=== PATIENT | male | born 1990 | race Caucasian/White ===

== ENCOUNTER 2017-02-24 10:11 | Emergency (ER) | payer OTHER ==
[2017-02-24] MEDS ORDERED: Sodium Chloride 0.9% 1,000 ML IV ONE (10:29)
[2017-02-24] MEDS ORDERED: Pantoprazole 40 MG Vial IVPUSH ONE (10:30)
--- NOTE | 2017-02-24 10:36 | EDM.PDOC ---
ED HPI GENERAL MEDICAL PROBLEM - General Chief Complaint: Abdominal Pain Stated Complaint: ABDOMINAL PAIN Time Seen by Provider: 02/24/17 10:20 - History of Present Illness INITIAL COMMENTS - FREE TEXT/NARRATIVE: HISTORY AND PHYSICAL: History of present illness: Patient 26-year-old white male presents concern of abdominal pain he states he' s had nausea with vomiting with several episodes of small blood in his emesis he denies melena hematochezia denies trauma denies fever chills denies urinary symptoms or other complaints Review of systems: As per history of present illness and below otherwise all systems reviewed and negative. Past medical history: As per history of present illness and as reviewed below otherwise noncontributory. Surgical history: As per history of present illness and as reviewed below otherwise noncontributory. Social history: No reported history of drug or alcohol abuse. Family history: As per history of present illness and as reviewed below otherwise noncontributory. Physical exam: HEENT: Atraumatic, normocephalic, pupils reactive, negative for conjunctival pallor or scleral icterus, mucous membranes moist, throat clear, neck supple, nontender, trachea midline. Lungs: Clear to auscultation, breath sounds equal bilaterally, chest nontender. Heart: S1S2, regular, negative for clicks, rubs, or JVD. Abdomen: Soft, nondistended, no localized tenderness. Negative for masses or hepatosplenomegaly. Negative for costovertebral tenderness. Pelvis: Stable nontender. Genitourinary: Deferred. Rectal: Deferred. Extremities: Atraumatic, negative for cords or calf pain. Neurovascular unremarkable. Neuro: Awake, alert, oriented. Cranial nerves II through XII unremarkable. Cerebellum unremarkable. Motor and sensory unremarkable throughout. Exam nonfocal. Diagnostics: CBC CMP amylase lipase UA chest x-ray EKG CT abdomen and pelvis Therapeutics: Normal saline 1 L bolus Protonix 80 mg IV Impression: #1 abdominal pain #2 history of hematemesis Definitive disposition and diagnosis as appropriate pending reevaluation and review of above. - Related Data Allergies Allergy/AdvReac Type Severity Reaction Status Date / Time No Known Allergies Allergy Verified 02/24/17 10:50 Home Meds: Home Meds . [No Known Home Meds] 02/24/17 [History] ED ROS GENERAL - Review of Systems Review Of Systems: ROS reveals no pertinent complaints other than HPI. ED EXAM, GENERAL - Physical Exam Exam: See Below (See dictation) Course - Vital Signs Last Recorded V/S: Last Vital Signs Temp 36.5 C 02/24/17 11:13 Pulse 105 H 02/24/17 11:13 Resp 18 02/24/17 11:13 BP 142/89 H 02/24/17 11:13 Pulse Ox 97 02/24/17 11:13 - Orders/Labs/Meds Orders: Active Orders 24 hr Category Date Time Status EKG Documentation Completion [RC] STAT Care 02/24/17 10:45 Active Abdomen Pelvis wo Cont [CT] Stat Exams 02/24/17 10:28 Taken Chest 1V Frontal [CR] Stat Exams 02/24/17 10:29 Taken Labs: Laboratory Tests 02/24/17 02/24/17 02/24/17 Range/Units 10:44 10:44 11:50 WBC 8.12 (4.0-11.0) K/uL RBC 6.04 H (4.50-5.90) M/uL Hgb 18.0 H (13.0-17.0) g/dL Hct 52.9 H (38.0-50.0) % MCV 87.6 (80.0-98.0) fL MCH 29.8 (27.0-32.0) pg MCHC 34.0 (31.0-37.0) g/dL RDW Std Deviation 43.0 (28.0-62.0) fl RDW Coeff of Fab 14 (11.0-15.0) % Plt Count 224 (150-400) K/uL MPV 10.30 (7.40-12.00) fL Neut % (Auto) 74.3 (48.0-80.0) % Lymph % (Auto) 15.9 L (16.0-40.0) % [place] % (Auto) 7.6 (0.0-15.0) % Eos % (Auto) 1.7 (0.0-7.0) % Baso % (Auto) 0.5 (0.0-1.5) % Neut # (Auto) 6.0 H (1.4-5.7) K/uL Lymph # (Auto) 1.3 (0.6-2.4) K/uL [place] # (Auto) 0.6 (0.0-0.8) K/uL Eos # (Auto) 0.1 (0.0-0.7) K/uL Baso # (Auto) 0.0 (0.0-0.1) K/uL Nucleated RBC % 0.0 /100WBC Nucleated RBCs # 0 K/uL Sodium 138 (136-146) mmol/L Potassium 4.4 (3.5-5.1) mmol/L Chloride 103 (98-110) mmol/L Carbon Dioxide 27 (21-31) mmol/L BUN 12 (6.0-23.0) mg/dL Creatinine 0.9 (0.6-1.5) mg/dL Est Cr Clr Drug Dosing 131.31 mL/min Estimated GFR (MDRD) > 60.0 ml/min Glucose 106 (60-110) mg/dL Calcium 10.1 (8.8-10.8) mg/dL Total Bilirubin 0.7 (0.1-1.5) mg/dL AST 19 (5-40) IU/L ALT 21 (8-54) IU/L Alkaline Phosphatase 74 (40-150) Total Protein 7.6 (6.0-8.0) g/dL Albumin 4.5 (3.5-5.0) g/dL Globulin 3.1 (2.0-3.5) g/dL Albumin/Globulin Ratio 1.5 (1.3-2.8) Lipase 48 (7-80) U/L Urine Color YELLOW Urine Appearance CLEAR Urine pH 8.5 H (5.0-8.0) Ur Specific [place] 1.020 (1.001-1.035) Urine Protein TRACE (NEGATIVE) mg/dL Urine Glucose (UA) NEGATIVE (NEGATIVE) mg/dL Urine Ketones NEGATIVE (NEGATIVE) mg/dL Urine Occult Blood NEGATIVE (NEGATIVE) Urine Nitrite NEGATIVE (NEGATIVE) Urine Bilirubin SMALL H (NEGATIVE) Urine Ictotest NEGATIVE Urine Urobilinogen 1.0 (<2.0) EU/dL Ur Leukocyte Esterase NEGATIVE (NEGATIVE) Urine RBC 0-2 (0-2/HPF) Urine WBC 0-2 (0-5/HPF) Ur Epithelial Cells FEW (NONE-FEW) Amorphous Sediment FEW (NEGATIVE) Urine Bacteria FEW (NEGATIVE) Meds: Medications Discontinued Medications Generic Name Dose Route Start Last Admin Trade Name Freq PRN Reason Stop Dose Admin Sodium Chloride 1,000 mls @ 999 mls/hr 02/24/17 10:29 02/24/17 10:51 Normal Saline IV 02/24/17 11:29 999 mls/hr .Bolus ONE Administration Ondansetron HCl 4 mg 02/24/17 10:45 02/24/17 10:53 Zofran IVPUSH 02/24/17 10:46 4 mg ONETIME ONE Administration Pantoprazole Sodium 80 mg 02/24/17 10:30 02/24/17 10:57 Protonix Iv IVPUSH 02/24/17 10:31 80 mg NOW ONE Administration Departure - Departure Time of Disposition: 12:39 Disposition: Home, Self-Care 01 Condition: Good Clinical Impression: Gastritis, Vomiting, Dehydration - Discharge Information Referrals: PCP,None [Primary Care Provider] - Forms: ED Department Discharge Additional Instructions: The following information is given to patients seen in the emergency department who are being discharged to home. This information is to outline your options for follow-up care. We provide all patients seen in our emergency department with a follow-up referral. The need for follow-up, as well as the timing and circumstances, are variable depending upon the specifics of your emergency department visit. If you don't have a primary care physician on staff, we will provide you with a referral. We always advise you to contact your personal physician following an emergency department visit to inform them of the circumstance of the visit and for follow-up with them and/or the need for any referrals to a consulting specialist. The emergency department will also refer you to a specialist when appropriate. This referral assures that you have the opportunity for followup care with a specialist. All of these measure are taken in an effort to provide you with optimal care, which includes your followup. Under all circumstances we always encourage you to contact your private physician who remains a resource for coordinating your care. When calling for followup care, please make the office aware that this follow-up is from your recent emergency room visit. If for any reason you are refused follow-up, please contact the [facility] emergency department at and asked to speak to the emergency department charge nurse. [facility] Specialty Care - General Surgery Professional Building [address] [place] [address], [address] [place] [address] [facility] [address] [place] [address] Protonix as prescribed Zofran as prescribed push fluids call to schedule routine appointment with primary care and Gen. surgery above return as needed as discussed - My Orders Last 24 Hours: My Active Orders 02/24/17 10:28 Abdomen Pelvis wo Cont [CT] Stat 02/24/17 10:29 Chest 1V Frontal [CR] Stat 02/24/17 10:45 EKG Documentation Completion [RC] STAT - Assessment/Plan Last 24 Hours: My Active Orders 02/24/17 10:28 Abdomen Pelvis wo Cont [CT] Stat 02/24/17 10:29 Chest 1V Frontal [CR] Stat 02/24/17 10:45 EKG Documentation Completion [RC] STAT
[2017-02-24] MEDS ORDERED: Ondansetron 4 MG/2 ML SDV IVPUSH ONE (10:45)
[2017-02-24 11:17] LABS: CHLORIDE,CL 103 mmol/L (98-110); SODIUM,NA 138 mmol/L (136-146)
--- NOTE | 2017-02-25 15:00 | CR ---
EXAM DATE: 02/24/17 PATIENT'S AGE: 26 Patient: HECTOR HAHN Facility: [place], [place] Site . Site : 1990 Study: XRay Chest [id number]/2017 11:21:42 AM Ordering Physician: Boy Ramirez Final Report: INDICATION: Pain. Technique: PA chest. Findings: Heart and mediastinum are normal in size. Pulmonary vessels are normal. Lungs are clear. No pleural fluid. No acute bony abnormality. Impression: Normal chest. Dictated by Rony Valdez MD @ Feb 24 2017 11:49AM (Electronic Signature) Report Signed by Proxy. [facility] HOSPITALRadha
--- NOTE | 2017-02-25 15:02 | CT ---
EXAM DATE: 02/24/17 PATIENT'S AGE: 26 Patient: HECTOR HAHN Facility: [place], [place] Site . Site : 1990 Study: CT Abdomen/Pelvis [id number]/26/[id number] 11:23:23 AM Ordering Physician: Boy Ramirez Final Report: INDICATION: Abdominal pain. TECHNIQUE: CT abdomen and pelvis without contrast. COMPARISON: None FINDINGS: Lower chest: Unremarkable. Liver: Unremarkable. Spleen: Unremarkable. Pancreas: No mass or ductal dilatation. Gallbladder and bile ducts: Unremarkable. Kidneys: No kidney or ureteral stones and no hydronephrosis. No renal lesions. Adrenal glands: Unremarkable. GI tract: There is minimal fat stranding adjacent to the distal gastric antrum, near the level of the pancreatic neck. Findings could represent gastritis or ulcer disease. No other bowel abnormality. The appendix is normal. Vascular structures: No abdominal aortic aneurysm. Lymph nodes: Unremarkable. Miscellaneous: No free air or ascites. Pelvic Organs: Unremarkable. Bones: No acute abnormality. No suspicious bone lesion. IMPRESSION: 1. Minimal fat stranding adjacent to the distal gastric antrum near the level of pancreatic neck. Findings may represent gastritis or ulcer disease. Correlate with upper abdominal/epigastric symptoms. The pancreas itself appears normal without definite evidence of pancreatitis. 2. The remainder of the study is normal. Dictated by Oscar Mendoza MD @ 02/24/2017 12:11:07 PM Dictated by: Oscar Mendoza MD @ 02/24/2017 12:11:16 (Electronic Signature) Report Signed by Proxy. [place]
== END 2017-02-24 12:59 | disposition home or self-care (01) ==
LOC: MW.ED 10:11
DX: K29.70 Gastritis, unspecified, without bleeding (principal); E86.0 Dehydration
CPT/HCPCS: 36415; 71010; 74176; 80053; 81001; 83690; 85025; 93005; 96361; 96374; 96375; 99285; C9113; J2405; J7040; 99283

== ENCOUNTER 2017-04-02 11:33 | Day surgery (SDC) | payer OTHER ==
[~2017-04-02 11:33] MED LIST: Lactated Ringers 1,000 ML IV SCH
--- NOTE | 2017-04-02 12:05 | PCM.PREANE ---
Preanesthetic Assessment - Anesthesia/Transfusion/Family Hx Anesthesia History: No Prior Anesthesia Family History of Anesthesia Reaction: No Transfusion History: No Prior Transfusion(s) - Review of Systems General: No Symptoms Pulmonary: No Symptoms Cardiovascular: No Symptoms Neurological: No Symptoms Other: Reports: None - Physical Assessment NPO Status Date: 04/01/17 Height: 1.8 m Weight: 114.305 kg ASA Class: 2 Mental Status: Alert & Oriented x3 Airway Class: Mallampati = 2 Dentition: Reports: Normal Dentition ROM/Head Extension: Full Lungs: Clear to Auscultation, Normal Respiratory Effort Cardiovascular: Regular Rate, Regular Rhythm - Allergies Allergies/Adverse Reactions: Allergies Allergy/AdvReac Type Severity Reaction Status Date / Time No Known Allergies Allergy Verified 02/24/17 10:50 - Acknowledgements Anesthesia Type Planned: MAC Pt an Appropriate Candidate for the Planned Anesthesia: Yes Alternatives and Risks of Anesthesia Discussed w Pt/Guardian: Yes Pt/Guardian Understands and Agrees with Anesthesia Plan: Yes PreAnesthesia Questionnaire - Past Health History Medical/Surgical History: Denies Medical/Surgical History Gastrointestinal History: Reports: GERD Musculoskeletal History: Reports: Fracture Other Musculoskeletal History: hx fx arm and wrist Endocrine/Metabolic History: Reports: Obesity/BMI 30+ - Past Surgical History Head Surgeries/Procedures: Reports: None - SUBSTANCE USE Smoking Status *Q: Current Every Day Smoker Tobacco Use Within Last Twelve Months: Snuff/Dip Second Hand Smoke Exposure: Yes Recreational Drug Use History: No - HOME MEDS Home Medications: Home Meds Ondansetron HCl [Ondansetron] 4 mg PO ASDIRECTED PRN 03/27/17 [History] Pantoprazole Sodium [Protonix] 20 mg PO DAILY 03/27/17 [History] - CURRENT (IN HOUSE) MEDS Current Meds: Current Medications Lactated Ringer's (Ringers, Lactated) 1,000 mls @ 125 mls/hr IV ASDIRECTED ANNE Last Admin: 04/02/17 11:50 Dose: 125 mls/hr
[2017-04-02] MEDS ORDERED: Lidocaine 2% 5 ML SDV ONE ×2 (12:46→13:04)
[2017-04-02] MEDS ORDERED: Midazolam 1 MG/ML 2 ML SDV ONE ×2 (12:46→13:05)
[2017-04-02] MEDS ORDERED: fentaNYL 100 MCG/2 ML SDV ONE ×2 (12:46→13:05)
[2017-04-02] MEDS ORDERED: Propofol 200 MG/20 ML SDV ONE ×4 (12:46→13:40)
--- NOTE | 2017-04-02 13:14 | PCM.OPNOTE ---
- General Post-Op/Procedure Note Date of Surgery/Procedure: 04/02/17 Operative Procedure(s): egd w bx Findings: see dict [id number] Pre Op Diagnosis: hematemisis Post-Op Diagnosis: gastritis and gerd Anesthesia Technique: Moderate Sedation Primary Surgeon: Michele Go Pathology: egd bx Complications: None Condition: Good
--- NOTE | 2017-04-02 13:19 | PCM.POSTAN ---
POST ANESTHESIA ASSESSMENT - MENTAL STATUS Mental Status: Alert, Oriented - RESPIRATORY Respiratory Status: Respiratory Rate WNL, Airway Patent, O2 Saturation Stable - CARDIOVASCULAR CV Status: Pulse Rate WNL, Blood Pressure Stable - GASTROINTESTINAL GI Status: No Symptoms - PAIN Pain Score: 0 - POST OP HYDRATION Hydration Status: Adequate & Stable
--- NOTE | 2017-04-02 13:31 | PCM48HPAN ---
Post Anesthesia Note - EVALUATION WITHIN 48HRS OF ANESTHETIC Vital Signs in Normal Range: Yes Patient Participated in Evaluation: Yes Respiratory Function Stable: Yes Airway Patent: Yes Cardiovascular Function Stable: Yes Hydration Status Stable: Yes Pain Control Satisfactory: Yes Nausea and Vomiting Control Satisfactory: Yes Mental Status Recovered: Yes - COMMENTS/OBSERVATIONS Free Text/Narrative:: No complaints. No anesthesia complications.
--- NOTE | 2017-04-02 14:02 | OR ---
SURGEON: Michele Go MD DATE OF PROCEDURE: 04/02/2017 PREOPERATIVE DIAGNOSIS: Hematemesis. POSTOPERATIVE DIAGNOSIS: Acid reflux and gastritis. PROCEDURE PERFORMED: Esophagogastroduodenoscopy with biopsy. FINDINGS: 1. The patient is easily sedated with IT QUALITY ASSURANCE ANALYST and Diprivan. The patient is soundly snoring. 2. Oropharynx and proximal esophagus are free of disease and no stricture, ulceration, bleeding. Distal esophagus at GE junction at 40 shows mild salmon color change consistent with acid reflux. Stomach rugae is normal in appearance and antrum is a little bit inflamed, and duodenum is grossly normal. Scope retrieved back to the stomach and retroflexed look at the fundus of stomach there was no hiatal hernia. There was no blood, ulcer, or healed ulcer or bile or food observed. Biopsy done at antrum, GE junction at 40 and body, and sucked out the air while scope pulling out. PROCEDURE IN DETAIL: The patient was taken to the endoscopy room, and with the IT QUALITY ASSURANCE ANALYST, Diprivan was administered. A well-lubricated EGD scope was gently inserted through the oropharynx, down the esophagus, passing through the gastroesophageal junction, into the stomach. The mucosa was examined upon the passage. Any etiology will be noted. Once in the stomach, we continued to advance to the distal antrum, passed through the pylorus into the second portion of the duodenum. Again, the mucosa was examined for any abnormality and etiology. The scope was then retrieved back to the stomach and then retroflexed to look at the fundus of the stomach. If a biopsy was indicated, we will biopsy the antrum, body, and gastroesophageal junction. The air will be sucked out while the scope is retrieved to reduce the patient's discomfort. The patient tolerated the procedure well. There were no intraoperative complications. Dr. Go was present through the whole procedure. Prior to surgery, a time-out had been called, the patient identified, procedure identified and antibiotic administered. MARY BETH / ROMIE /[id number]
== END 2017-04-02 13:49 | disposition home or self-care (01) ==
LOC: MW.SDS 11:33
PROVIDERS: ATTEND Surgery
DX: K29.50 Unspecified chronic gastritis without bleeding (principal); B96.81 Helicobacter pylori [H. pylori] as the cause of diseases classified elsewhere; Z79.899 Other long term (current) drug therapy; F17.210 Nicotine dependence, cigarettes, uncomplicated
CPT/HCPCS: 43239; J2250; J3010; J7120; 00731; 88305; 88312; J2704